=== PATIENT | male | born 1970 | race Two or more races ===

== ENCOUNTER 2016-07-23 18:09 | Emergency (ER) | payer OTHER ==
[~2016-07-23 18:09] MED LIST: FLEXERIL PO; VICODIN 5/500 T1 TAB PO; ZANTAC150 MG PO; [UNRECOGNIZED DRUG - OTHER]
== END 2016-07-23 18:35 | disposition home or self-care (01) ==
LOC: CFTX 18:09
DX: L50.0 Allergic urticaria (principal)
CPT/HCPCS: 96372; 99283; J1100

== ENCOUNTER 2017-01-21 09:49 | Emergency (ER) | payer OTHER ==
[~2017-01-21] VITALS: Ht 172.7 cm; Wt 65.8 kg
== END 2017-01-21 11:57 | disposition home or self-care (01) ==
LOC: CFTX 09:49 → CED 09:49 → CFTX 10:57
DX: M54.5 Low back pain (principal)
CPT/HCPCS: 99283

== ENCOUNTER 2017-01-23 13:17 | Emergency (ER) | payer OTHER ==
[~2017-01-23] VITALS: Ht 172.7 cm; Wt 65.8 kg
== END 2017-01-23 15:01 | disposition home or self-care (01) ==
LOC: CED 13:17 → CFTX 13:17
DX: M54.16 Radiculopathy, lumbar region (principal)
CPT/HCPCS: 96372; 99283; J1885